=== PATIENT | male | born 1980 | race Hispanic/Latino ===

== ENCOUNTER → 2024-02-14 07:28 | Outpatient (REF) | payer OTHER, SELFPAY | LOC: HWRAD 07:28 | PROVIDERS: ATTENDING PHYSICIAN Otolaryngology; FAMILY PHYSICIAN Internal Medicine | DX: J32.8 Other chronic sinusitis (principal) | CPT/HCPCS: 70486 ==

== ENCOUNTER → 2024-06-05 17:56 | Outpatient (REF) | payer OTHER, SELFPAY | LOC: CLAB 17:56 | PROVIDERS: ATTENDING PHYSICIAN Otolaryngology | DX: R22.0 Localized swelling, mass and lump, head (principal) | CPT/HCPCS: 88305 ==